=== PATIENT | female | born 1935 | race Caucasian/White ===

== ENCOUNTER → 2019-02-22 | Emergency (ER) | payer OTHER ==
[~2019-02-22] VITALS: Ht 154.9 cm; Wt 56.3 kg
[~2019-02-22] MED LIST: ACET325T33 PO; ACETAMINOPHEN 325 MG TAB PO ONE; ATEN50TA PO; KETOROLAC 15 MG INJ IM STA; SIMV20TA PO
[2019-02-22 14:57] VITALS: Ht 154.9 cm; Wt 56.3 kg
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
== END | disposition home or self-care (01) ==
LOC: FTE 14:04
DX: M25.561 Pain in right knee (principal); I10 Essential (primary) hypertension; M25.562 Pain in left knee
CPT/HCPCS: 73510